=== PATIENT | male | born 1970 | race Caucasian/White ===

== ENCOUNTER 2017-01-28 09:00 | Inpatient (IN) | payer MEDICAID ==
[~2017-01-28] VITALS: Ht 177.8 cm; Wt 79.4 kg
--- NOTE | ~2017-01-28 | DS ---
Unit #: [id number] #: [id number] Patient: SHELTON FORTUNE [id number] [facility] [address] [place] [address] [id number] MR#: [id number] NAME: SHELTON FORTUNE. ROOM: P202 Age: 47 Sex: M Admission Date: 01/28/2017 : 1970 Discharge Date: 01/31/2017 Attending Physician: Alvarez Pedroza M.D. Primary Care Physician: Generic Doctor Not In System DISCHARGE SUMMARY REASON FOR ADMISSION The patient is a 47-year-old white male admitted to the [address] [place] [address] unit for alcohol detox. HOSPITAL COURSE The patient is admitted to the [address] [place] [address] unit and placed on routine detox patient protocol for alcohol. His stay in the hospital was a brief and uneventful one. His detox went smoothly and he requested discharge from the hospital on 01/31/2017. The request was ordered. FINAL DIAGNOSIS Alcohol use disorder. DISPOSITION ON DISCHARGE The patient is discharged on no psychotropic or other medications. FOLLOWUP Followup will take place through the auspices of community mental health resources in the [place], [place] area. PROGNOSIS Considered fair. Dictated by... Alvarez Pedroza M.D. CB/michell TD: 02/04/2017 10:04 JOB #: [id number] DISCHARGE SUMMARY Page 1 of 1 X Alvarez Pedroza MD X DISCHARGE SUMMARY
--- NOTE | ~2017-01-28 | HP ---
Unit #: [id number] #: [id number] Patient: SHELTON FORTUNE [id number] [place] [address] [id number] MR#: [id number] NAME: SHELTON FORTUNE. ROOM: P202 Age: 47 Sex: M Admission Date: 01/28/2017 : 1970 Attending Physician: Alvarez Pedroza M.D. Admitting Physician: Alvarez Pedroza M.D. Primary Care Physician: Generic Doctor Not In System HISTORY AND PHYSICAL HISTORY OF PRESENT ILLNESS Shelton is a 47 year old admitted to [address] [place] [address] because of his abuse of alcohol. He is detoxing. PAST MEDICAL HISTORY 1. Long history of alcohol abuse. 2. Asthma. PAST SURGICAL HISTORY Low back. ALLERGIES Zoloft. SOCIAL HISTORY Smokes 1 pack per day. Drinks fifth of whiskey on a daily basis. Admits to using marijuana daily. FAMILY HISTORY Medically noncontributory. REVIEW OF SYSTEMS CONSTITUTIONAL: No fever or chills. HEENT: Denies any sore throat, ear pain or runny nose. CARDIOVASCULAR: Denies chest pain, irregular heart rhythm or palpitations. CHEST: Denies shortness of breath or cough. No hemoptysis. GASTROINTESTINAL: Denies nausea, vomiting, diarrhea or chronic constipation. ENDOCRINE: Denies history of increased thirst or urination. No recent significant weight loss or gain. GENITOURINARY: Denies dysuria, frequency, or hematuria. SKIN: Denies any rashes. HEMATOLOGIC: Denies history of increased bleeding or bruising. MUSCULOSKELETAL: Denies any hot, swollen joints. No generalized muscle pain. NEUROLOGIC: Denies problems with vision or speech. No frequent, severe headaches. No numbness, tingling or weakness in any extremities. Denies loss of bladder or bowel control. CURRENT MEDICATIONS Detox protocol. PHYSICAL EXAMINATION Unit #: [id number] #: [id number] Patient: SHELTON FORTUNE GENERAL: Alert, well-nourished, in no apparent distress. VITAL SIGNS: Blood pressure 136/88, heart rate 100, respirations 16, temperature 98.6. WEIGHT: 175. HEIGHT: 5 feet 10 inches. SKIN: Warm and dry without rash or lesion. HEENT: Normocephalic. TMs not viewed. Oral and nasal passages clear. Conjunctivae clear. PERRLA. EOMs intact. NECK: Supple without lymphadenopathy or thyromegaly. HEART: Regular rate and rhythm without murmur. LUNGS: Clear. ABDOMEN: Soft, nontender. : Not done. EXTREMITIES: No evidence of cyanosis, clubbing or edema. Moves all without focal deficit. NEUROLOGICAL: Grossly within normal limits. Cranial Nerves: II: Visual sanders are intact. III, IV AND : Extraocular movements are intact. Pupils are equal, round and reactive to light. V: Facial sensation is grossly normal. VII: Facial movements and expression are normal. VIII: Auditory acuity grossly intact. IX, X: Uvula is midline. Phonation is normal. XI: Patient shrugs shoulders and turns head normally. XII: Tongue protrudes in the midline. Sensory and Motor Function: Sensory and motor sensation is grossly normal. Motor: moves all extremities well. Coordination: Gait is normal. Deep Tendon Reflexes: Intact. IMPRESSION Psychiatric admission. RECOMMENDATIONS PSYCHIATRIC: Per psychiatrist. MEDICAL: See no contraindication to participate in facility's activities. MEDICAL PROGNOSIS Good. MEDICAL CONDITION Stable. Dictated by... Page Mays P.A.-C. for Prasanna Ramon/pia TD: 01/28/2017 20:17 JOB #: [id number] Unit #: [id number] #: [id number] Patient: SHELTON FORTUNE HISTORY AND PHYSICAL Page 1 of 1 X Page Mays HISTORY AND PHYSICAL
--- NOTE | ~2017-01-28 | PA ---
Unit #: [id number] #: [id number] Patient: SHELTON FORTUNE [id number] [place] [address] [id number] MR#: [id number] NAME: SHELTON FORTUNE. ROOM: P202 Age: 47 Sex: M Admission Date: 01/28/2017 : 1970 Date of Assessment: 01/29/2017 Attending Physician: Alvarez Pedroza M.D. Admitting Physician: Alvarez Pedroza M.D. Primary Care Physician: Generic Doctor Not In System PSYCHIATRIC ASSESSMENT IDENTIFYING INFORMATION The patient is a 47-year-old white male admitted to the [address] [place] [address] for alcohol detox. CHIEF COMPLAINT Alcoholism. INFORMANT(S) Patient, reliability is good. HISTORY OF PRESENT ILLNESS The patient is a 47-year-old single white male with a history of alcohol dependence. He reports a history of previous chemical dependence treatment in [place], [place], but denies other psychiatric treatment though he does list an allergy to Zoloft. The patient reports that he has been drinking a fifth of hard liquor on a daily basis. He also admits to abuse of cannabis. The patient reports that he has been prescribed Wellbutrin in the past, and this medication was refilled in the last month. He was also prescribed gabapentin in the past but is no longer taking this medication. The patient is a resident of [place], [place], and has been staying with a roommate. He does part-time construction work. He denies current suicidal or homicidal ideation or any psychotic symptoms. He denies recent changes in sleep or appetite. The patient is originally from [place]. He has been 3 times but has no children. PAST PSYCHIATRIC HISTORY Noncontributory except as above. PAST MEDICAL HISTORY The patient states that he has a mandibular mass which is due for biopsy soon. MEDICATIONS Wellbutrin. ALLERGIES Zoloft. FAMILY HISTORY The patient reports an extensive family history of alcohol use. SOCIAL HISTORY The patient is a high school graduate. He is and x3 and Unit #: [id number] #: [id number] Patient: SHELTON FORTUNE has no children. He is currently living with a roommate and does part-time construction work in addition to his aforementioned alcohol use. He is a user of cannabis. MENTAL STATUS EXAMINATION Examination at this time reveals the patient to be well-developed well-nourished heavily and grotesquely tattooed white male appearing stated age. He is in no apparent physical distress at the time of examination. He is awake, alert, and oriented in all spheres. His mood is mildly dysphoric, his affect constricted. Speech is generally well coherent. There are no gross deficits in memory or cognition noted. Intelligence is judged to be in the average range based on fund of knowledge. The patient is cooperative throughout the interview. He is currently denying suicidal or homicidal ideation or psychotic features. Judgment and insight appear to be intact. ASSETS AND LIABILITIES The patient's assets: Motivation for change. Liabilities: Lack of resources. DIAGNOSTIC IMPRESSION 1. Alcohol use disorder. 2. Dysthymic disorder. TREATMENT PLAN The patient remains hospitalized for safety and stabilization. Routine detoxification protocol for alcohol has been initiated, and the patient's home medications, specifically Wellbutrin, will be continued. The patient will participate in appropriate order of milieu activities, and is expressing interest in going to a "[facility]" in [place] following completion of detox. ESTIMATED LENGTH OF STAY 3 to 5 days. Dictated by... Alvarez Pedroza M.D. Judy TD: 01/29/2017 13:20 JOB #: [id number] PSYCHIATRIC ASSESSMENT Page 1 of 1 X Alvarez Pedroza MD X PSYCHIATRIC ASSESSMENT
--- NOTE | ~2017-01-28 | PN ---
Unit #: [id number] #: [id number] Patient: SHELTON FORTUNE [id number] [facility] [address] [place] [address] [id number] I MR#: [id number] NAME: SHELTON FORTUNE. ROOM: P202 Age: 47 Sex: M Admission Date: 01/28/2017 : 1970 Attending Physician: Alvarez Pedroza M.D. Admitting Physician: Alvarez Pedroza M.D. Primary Care Physician: Generic Doctor Not In System [facility] PROGRESS NOTES DATE 01/30/2017 DISCUSSION The patient is snoring loudly today and cannot be aroused for interview. He does continue to require Ativan virtually every 4 hours having received his last dose related to autonomic hyperactivity at 12 noon. We continue his alcohol detox. Dictated by... Alvarez Pedroza M.D. BACILIO/marck TD: 01/30/2017 13:58 JOB #: [id number] [facility] PROGRESS NOTES Page 1 of 1 X Alvarez Pedroza MD PROGRESS NOTE
== END 2017-01-31 14:52 | disposition home or self-care (01) | DRG 897 ==
LOC: P2S 13:03
PROC: HZ2ZZZZ Detoxification Services for Substance Abuse Treatment (ICD-10-PCS; principal; 2017-01-28)
DX: F10.20 Alcohol dependence, uncomplicated (principal); F34.1 Dysthymic disorder; J45.909 Unspecified asthma, uncomplicated; F17.210 Nicotine dependence, cigarettes, uncomplicated
CPT/HCPCS: 82150